=== PATIENT | female | born 1985 | race Caucasian/White ===

== ENCOUNTER 2016-10-21 09:24 | Emergency (ER) | payer OTHER ==
[~2016-10-21] VITALS: Ht 157.5 cm; Wt 65.8 kg
[~2016-10-21 09:24] MED LIST: COLACE GENERIC100 MG PO; FERROUS SULFAT325 M2 PO; MIRALAX(PO17 GM/1 PA; MOTRIN400 MG PO; PRENATAL1 TA2
--- NOTE | 2016-10-21 09:51 | [facility] Report ---
History of Present Issue Date/Time Seen by Provider 10/21/16 0951 Visit Reason Pt arrived:Walked Presenting Problem:PT C/O SORE THROAT AND DRAINAGE X3 DAYS Location if Accident: Onset of symptoms date/time:/ or onset unknown for:MEDICAL HX UNKNOWN Have you (or family members/close friends) recently traveled outside the [place]? N If Yes, where/when: Have you had exposure to infectious disease within the past month? TB? Other? Specify: c/o sore throat, general malaise, intermittent subjective fever starting over the weekend, x2-3 days. PND starting this morning. ibuprofen has helped. 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 Sore throat worse at night , entire throat, described as itchy and irritated. Source patient Exam Limitations no limitations ALLERGIES Coded Allergies: No Known Allergies (10/21/16) Home Medications Active Scripts Ferrous Sulfate (Ferrous Sulfate 325MG) 325 MG PO BID #60 Prov: 11/02/10 Reported Medications VIT W-CA,FE,FA(<1 MG) ( Vitamins) 1 DAILY Docusate Sodium (Colace 100MG Cap) 1 PO PRN POLYETHYLENE GLYCOL (Miralax) History Medical History General CAD? No Angina: No HI: No Hypertension? No Hyperlipidemia? No CHF? No DVT? No PE? No COPD? No Asthma? No Anemia? No GERD? No Gastric ulcers? No GI Bleed? No Hernia? No Thyroid Problems? No Hypothyroidism? No CVA? No Seizures? No Diabetes? Yes Insulin Dependent: No Insulin Pump: No Home FSBS? Yes Renal Insuffiency? No UTI? No Stones? No BPH? No GB Disease: No Nephritic Syndrome? No Asplenia? No Hepatitis? No Sickle Cell Disease? No Arthritis? No Migraines? No Cataracts? No Glaucoma? No MRSA? No HIV? No TB? No Anxiety? No Depression? No Cancer? No More? No Immunization HX DT/Tetanus Unknown Surgical Hx Previous Surgery?N Family History Family HX Diabetes No CAD No Hypertension Yes Hyperlipidemia No Cancer Yes TB No Social History Smoking Hx Smoker: Never Smoker Tobacco: No Alcohol Alcohol: No Review of Systems All Other Systems Reviewed and Negative Constitutional see HPI, denies chills Eyes denies drainage ENT nose congestion. denies: ear pain, ear discharge, nose discharge, throat swelling. Respiratory denies cough Gastrointestinal denies nausea, denies vomiting Musculoskeletal denies other (aches) Skin denies rash Psychiatric/Neurological denies headache Physical Exam Vital Signs Vital Signs Date Time Temp Pulse Resp B/P Pulse O2 O2 Flow FiO2 Ox Delivery Rate 10/21 1000 98.2 89 20 138/90 97 10/21 0937 98.2 89 20 138/90 97 General Appearance no apparent distress Ear, Nose, Throat normal ENT inspection Neck non-tender, supple Respiratory Status No: respiratory distress (no cough). Lung Sounds anterior: lungs clear. posterior: lungs clear. bilateral: lungs clear. Cardiovascular regular rate/rhythm, no peripheral edema, no murmur Neurologic alert Skin normal color, warm/dry Lymphatic no adenopathy (anterior cervical) Medical Decision Making LABS/Meds/Orders Pt receiving controlled substance in ED? No Results/Orders Laboratory Tests 10/21/16 0940: Group A Strep Screen NOT DETECTED Orders Procedure Date/time Status [facility] STREP SCREEN 10/21 936 Complete Departure Departure Time of Disposition 0958 Disposition DC Home or Self Care(routine) Clinical Impression Primary Impression: Viral pharyngitis Condition STABLE Referrals Aydin STOVER,Diego (Family) Follow up IMMEDIATELY for new or worsening symptoms OR no noticeable improvement over the next 48-72 hours. 911 for difficulty breathing or swallowing. Patient Instructions DI for Viral Pharyngitis Additional Instructions * No sign of bacterial infection. Likely viral. Virus can take 7-14 days to run their course * Monitor Temp. Tylenol every 4 hours as needed and/or ibuprofen every 6 hours as needed (as long as your primary care doctor has told you that it is ok to take both) for fever/aches/pain. ER if fever no less than 101 despite tylenol and ibuprofen * Encourage fluids, water, gatorade, powerade, pedialyte if infant/toddler/child * warm salt water gargles * warm fluids * sore throat lozenges * sleep elevated * humidifier/vaporizer * * Your throat swab was sent for culture. Those results are typically sent to your primary care. Be sure to follow up in 2-3 days if no improvement so they can review those results and treat if necessary. If you don't have primary care, I recommend you get one but in the mean time, you will have to return to a walk in clinic. Follow up IMMEDIATELY for new or worsening symptoms OR no noticeable improvement over the next 48-72 hours. 911 for difficulty breathing or swallowing. Discharge Counseling Counseled pt/family regarding diagnosis, test results, medications/RX, home care, follow up needs at 1037
[2016-10-21 10:00] VITALS: BP 138/90
== END 2016-10-21 10:01 | disposition home or self-care (01) ==
LOC: UTC 09:24
DX: J02.9 Acute pharyngitis, unspecified (principal)